=== PATIENT | male | born 1970 | race Hispanic/Latino ===

== ENCOUNTER 2018-06-12 11:21 | Inpatient (IN) | payer SELFPAY ==
[2018-06-12] MEDS ORDERED: Morphine 2 MG/ML SYRINGE ONE (11:48)
[2018-06-12] MEDS ORDERED: CEFAZOLIN/Water 2 GM/20 ML SYRINGE SLOW IVP SCH (12:15)
--- NOTE | 2018-06-12 12:28 | CON ---
DATE OF CONSULTATION: 06/12/2018 CONSULTING PHYSICIAN: Dr. Kurtis Cavanaugh HISTORY OF PRESENT ILLNESS: The patient was brought in from [place]. He was initially seen there f or a large laceration to the right lower extremity. 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 He is in a fair amount of pain. He has a little bit of numbness to that me dial side of the right foot, but he can feel some sensations. A worker that works with him is interp reting. Overall, he is in good health. He has got no history of any surgeries. His coworker states he is very strong worker and has known him for 10+ years and the individual is rarely or has no medi charanjit issues. He is able to move his foot, dorsiflex and plantarflex well. PAST MEDICAL HISTORY: Healthy. SOCIAL HISTORY: Works, has occasional ETOH beverage, smokes a pack of cigarettes or less for 40 some odd years. FAMILY HISTORY: Noncontributory. ALLERGIES: No known drug allergies. CURRENT MEDICATIONS: Occasional [id number] medications, but no daily current medications. REVIEW OF SYSTEMS: Pain to that right lower extremity and a little bit of numbness. Otherwise, rest of review of systems discussed with the patient through spanish medical interpreter is negative. PHYSICAL EXAMINATION: GENERAL: Well-nourished, well-developed male resting on gurney, in no acute distress. Spee ch is clear. Affect pleasant. Answers questions appropriately. He is alert and oriented x3 per int erpreter. HEENT: Normal exam. Face symmetric, tongue midline. EXTREMITIES: Upper extremities, equal size, shape, symmetry, normal bulk and tone. Lower extremitie s; the patient has a very significant large opened traumatic laceration to his right anterior carrillo. He did bounce the blade off of his tibia, which is noted on visual exam. Sensations; he is able to f eel light touch sensations to the entire right foot, but states the great toe, second digit down to t he foot is a little bit different feeling than the left. DP, PT pulses equal and symmetric. Sensati ons are intact as discussed above. ASSESSMENT: Traumatic saw blade injury to the right anterior carrillo. PLAN: I spoke with the patient through an spanish medical interpreter. He is healthy. He has not eaten anything si nce this morning. I explained the risks and benefits of surgery and discussed surgical option, which would be a surgical washout, antibiotics. He may need a wound VAC, secondary wound closure dependin g on the tissue loss. The patient understands the risks and benefits of surgery as we have discussed through the spanish medical interpreter and he is amenable to go forth with surgery. His tetanus shot was updated a nd again he has no chronic health problems.
[2018-06-12] MEDS ORDERED: Lidocaine 1% PF 5 ML VIAL ONE (13:54)
[2018-06-12] MEDS ORDERED: PROPOFOL 200 MG/20 ML VIAL ONE (13:54)
[2018-06-12] MEDS ORDERED: ePHEDrine/0.9% NaCl/PF SYRINGE 50 mg/10 ml ONE (13:54)
--- NOTE | 2018-06-12 14:12 | HP-2 ---
DATE OF ADMISSION: 06/12/2018 HISTORY OF PRESENT ILLNESS: Mr. Ortiz is a 47-year-old gentleman, who was a transfer from the [facility] after suffering an injury to his right leg at work this morning. The patient reports that he was working around a large mechanical saw and, while walking to go and retrieve new "bands" to change out on the machine, he accidentally brushed his leg against the saw while it was operating. This resulted in a significant injury to his right carrillo. On initial presentation to the [facility], the patient's vitals were noted to be within normal limits and his initial GCS score was 15. However, he was reported 10/10 pain in his right lower extremity with some associated numbness and/or tingling. He was therefore given 8 mg of IV morphine for pain control. In addition, the patient was given 4 mg of IV Zofran, a tetanus shot, and a 3.375 gram dose of IV Zosyn. An x-ray of the patient's right lower leg was also taken and was significant only for a very large, extensive soft tissue injury with a small osseous defect on the anterior cortex involving half the depth of the anterior apex. No full thickness fracture or foreign bodies were identified. Upon arrival to the [facility] in [place], the patient's GCS score remained at 15, and on our evaluation, he reported his pain to be a 3/10 in severity. He still endorsed some persistent associated numbness in the right lower extremity, but was otherwise feeling much improved compared to when he initially presented. PAST MEDICAL HISTORY: The patient denies any previous medical problems. PAST SURGICAL HISTORY: The patient denies any previous surgeries. SOCIAL HISTORY: The patient endorses an approximate [id number] history stating he has smoked about a pack a day since he was 10 years old. He denies any illicit drug use but endorses occasional alcohol use. FAMILY HISTORY: Patient denies any family history of diabetes mellitus, hypertension, or heart disease. CURRENT MEDICATIONS: The patient denies any active medications. ALLERGIES: Patient denies any known drug allergies. REVIEW OF SYSTEMS: A 10-point review of systems is essentially unremarkable except for what was mentioned in the history of present illness. PHYSICAL EXAMINATION: GENERAL: Patient is a 47-year-old normally developed man, who is coherent and interactive and appears stated age. The patient is alert and oriented x3 and appears to be in no acute distress. VITAL SIGNS: Blood pressure, just prior to evaluation, was measured at 127/74, pulse 54, respiratory rate 16, temperature 97.9, oxygen saturation 97% on room air. HEENT: Head is normocephalic, atraumatic with no scleral icterus present. CHEST: Chest wall is stable. No gross deformities present. HEART: Regular rate and rhythm. No murmurs or gallops noted. LUNGS: Clear to auscultation bilaterally. Symmetric chest rise with normal work of breathing. ABDOMEN: Abdomen is soft, nontender, nondistended. Normal bowel sounds noted. EXTREMITIES: Evaluation of the right lower extremity reveals an approximate 15 cm avulsion laceration of the pretibial area, approximately 8 cm below the knee. There is marked disruption of the soft tissue and musculature with superficial injury to the tibia. Patient is neurovascularly intact distal to the site of injury. Patient has full range of motion in all extremities. NEUROLOGIC: GCS 15. No focal deficits noted. PERTINENT LABORATORY FINDINGS: Includes a CBC with 11,700 white blood cells, hemoglobin and hematocrit of 16.3 and 51.4, platelet count is 237. PT 12.6, INR 0.9, PTT 24.4. CMP significant for a sodium of 139, potassium 3.7, chloride 108, bicarbonate 21, BUN 14, creatinine 1.05, glucose 138, total bilirubin 0.5, AST 20, ALT 21, alkaline phosphatase 81. IMAGING: Right tibia/fibula x-ray on presentation was significant for a very large extensive soft tissue injury involving the anterior aspect of the lower leg at the level of the proximal tibia shaft. Smooth osseous defects of the anterior cortex involving approximately half the depth of the anterior apex was noted. Tiny ossific fragments were noted to overlie the last noted soft tissue fragments. No full thickness fracture or metallic foreign bodies were apparent. IMPRESSION: 1. Status post mechanical saw injury to RLE. 2. Skin & soft tissue avulsion laceration of the pretibial area of right lower extremity with minor damage to anterior tibial cortex. 3. Acute traumatic pain. PLAN: 1. Orthopedic Surgery consulted regarding injury to the tibia. 2. The patient will be admitted to the surgical unit following surgical intervention. Will keep NPO and provide supportive care with IVFs and IV pain medications until patient is post-op. 3. We will initiate deep venous thrombosis and gastrointestinal prophylaxis when appropriate post-operatively. 4. We will continue antibiotic prophylaxis as appropriate and will monitor closely for any signs or symptoms of infection. 5. We will monitor hemoglobin and hematocrit closely with a.m. CBC to ensure patient does not develop anemia secondary to acute blood loss. 6. Will consult PT/OT PRN. Patient was seen by and plan was discussed with trauma attending, Dr. Malik Cavazos. ITA
[2018-06-12] MEDS ORDERED: Ondansetron HCl/PF 4 MG/2 ML Vial IVP PRN ×2 (14:32→18:25)
[2018-06-12] MEDS ORDERED: Dextrose 50% Abboject 50 ML SYRINGE SLOW IVP PRN (14:32)
[2018-06-12] MEDS ORDERED: Dextrose 5% in Water 1,000 ML IV PRN (14:32)
[2018-06-12 14:45] VITALS: BMI 24.3
[2018-06-12] MEDS ORDERED: Fentanyl 100 MCG/2 ML VIAL ONE ×2 (17:04→18:49)
[2018-06-12] MEDS ORDERED: CEFAZOLIN/Water 2 GM/20 ML SYRINGE ONE (17:23)
[2018-06-12] MEDS ORDERED: Promethazine HCl 25 MG/ML VIAL IM PRN (18:25)
[2018-06-12] MEDS ORDERED: Promethazine HCl 25 MG/ML VIAL SLOW IVP PRN (18:25)
[2018-06-12] MEDS: CEFAZOLIN/Water 2 GM/20 ML SYRINGE SLOW IVP SCH (22:06)
[2018-06-12] MEDS: Morphine 4 MG/ML VIAL SLOW IVP PRN (22:06)
--- NOTE | 2018-06-13 00:09 | OP ---
DATE OF PROCEDURE: 06/12/2018 PROCEDURE: Irrigation and debridement of right leg laceration with open tibia fracture. PREOPERATIVE DIAGNOSIS: Right deep leg laceration through muscle fascia and into bone. POSTOPERATIVE DIAGNOSIS: Right deep leg laceration through muscle fascia and into bone. COMPLICATIONS: None. ESTIMATED BLOOD LOSS: Minimal. SURGEON: Kurtis Cavanaugh M.D. ANESTHESIA: General plus local. INDICATIONS: Mr. Bear is a 47-year-old male who lacerated his leg at the mid shaft of the tibia with a circulating saw. He had a complex laceration with muscle and bone involvement. He has been indicated for irrigation and debridement of the wounds to prevent infection and removed nonviable tis ana. Risks have been reviewed in detail. Main risk is of infection or wound complication. DESCRIPTION OF PROCEDURE: Mr. Bear was identified in the preoperative holding area. His correc t extremity was marked. He was carried to the operating room. He was positioned supine. General an esthesia was induced. A multidisciplinary timeout was performed. The right lower extremity was prep ped and draped in sterile fashion. We began the procedure with exploration of the patient's wound. He had a 10 cm laceration over the a nterior lateral tibia. These traveled down to the bony level. We debrided, injured anterior compart ment musculature which was severely injured. We also debrided fascia and bone and sharp fashion with rongeur and a curet and knife. We thoroughly irrigated with copious lavage. At this point, we adrienne n performed a final debridement. We then very loosely closed the skin over the wound with 3-0 nylon suture. A sterile dressing was applied. The patient was taken to the recovery room in good conditio n.
[2018-06-13] MEDS: Lactated Ringer's 1,000 ML IV SCH ×2 (04:22→04:23)
[2018-06-13 04:39] LABS: #Eosinphils 0.1 thou/uL (0.0-0.7); #Lymphocytes 1.7 thou/uL (1.20-3.40); #Monocytes 1.2 thou/uL (0.11-0.59); %Basophils 0.3 % (0.0-1.0); %Lymphocytes 15.4 % (21.0-51.0); %Monocytes 10.7 % (0.0-10.0); %Neutrophils 72.6 % (42.0-75.0); Hemoglobin 14.2 g/dL (14.0-18.0); Mean Corpuscular HGB CONC 32.3 g/dL (32.0-36.0); Mean Corpuscular Hemoglobin 30.4 pg (27.0-31.0); Mean Corpuscular Volume 94.2 fL (78.0-98.0); Mean Platelet Volume 9.1 fL (7.4-10.4); Platelet Count 177 thou/uL (130-400); RBC Distribution Width 12.6 % (11.5-14.5); Red Blood Cell (RBC) Count 4.67 mill/uL (4.70-6.10); White Blood Cell (WBC) Count 11.1 thou/uL (4.8-10.8)
[2018-06-13] MEDS: CEFAZOLIN/Water 2 GM/20 ML SYRINGE SLOW IVP SCH (05:27)
[2018-06-13] MEDS: Morphine 4 MG/ML VIAL SLOW IVP PRN (05:35)
[2018-06-13] MEDS ORDERED: traMADol HCl 50 MG TAB PO PRN (05:46)
[2018-06-13] MEDS: Ibuprofen 800 MG TAB PO SCH ×3 (07:53→21:42)
[2018-06-13] MEDS: traMADol HCl 50 MG TAB PO SCH ×3 (07:54→17:42)
[2018-06-13] MEDS: Acetaminophen 500 MG TAB PO SCH ×3 (07:54→17:42)
[2018-06-13] MEDS: Famotidine 20 MG TAB PO SCH ×2 (08:41→21:44)
[2018-06-13] MEDS: Enoxaparin Sodium 40 MG/0.4 ML SYRINGE SC SCH (08:42)
[2018-06-13] MEDS: Senokot S 8.6-50 MG TAB PO SCH (21:44)
[2018-06-14] MEDS: Acetaminophen 500 MG TAB PO SCH ×3 (00:34→12:05)
[2018-06-14] MEDS: traMADol HCl 50 MG TAB PO SCH ×3 (00:35→12:05)
[2018-06-14] MEDS: Ibuprofen 800 MG TAB PO SCH ×2 (05:44→15:24)
--- NOTE | 2018-06-14 08:23 | PRG-2 ---
DATE OF SERVICE: 06/13/2018 SUBJECTIVE: The patient is a 47-year-old gentleman, who is postop day #1 status post I&D & loose wound closure of a 15 cm avulsion laceration of his right pretibial area. No acute events overnight. On exam, the patient states his pain has been well controlled and rates it 3/10 in severity. Still endorses some residual numbness in his right lower extremity. The patient has no complaints this morning. OBJECTIVE: VITAL SIGNS: Temperature 98.2 degrees Fahrenheit, pulse 80, respirations 16, O2 sat 95% on room air, and blood pressure 115/58. GENERAL: The patient is sitting up in bed and coherent and conversant, in no acute distress. HEENT: Atraumatic, normocephalic. CARDIOVASCULAR: Regular rate and rhythm, no murmurs. LUNGS: Clear to auscultation bilaterally. Symmetric chest rise and normal work of breathing. EXTREMITIES: Right lower extremity has clean, dry, dressing covering his wound. He has normal range of motion in all extremities. Neurovascularly intact distal to the site of injury. NEUROLOGIC: The patient is alert and oriented x3. No focal deficits noted. LABORATORY DATA: White blood count 11.1, hemoglobin 14.2, hematocrit 44, and platelet count 177. RADIOLOGIC DATA: There is no new radiologic data for review. ASSESSMENT: 1. Status post mechanical fall injury to right lower extremity. 2. Skin and soft tissue avulsion laceration of the pretibial area of right lower extremity, status post repair. 3. Acute traumatic pain. PLAN: Will touch base with Orthopedic Surgery, Dr. Cavanaugh, today regarding when the patient can be cleared for discharge. Will have PT come and evaluate and work with the patient today. Will continue with p.o. medications only for postop pain control and initiate a scheduled bowel regimen. Will continue to monitor for signs of infection. Will get a repeat CBC in the morning. The patient was seen by and the plan was discussed with the trauma attending, Dr. Malik Cavazos. ITA
[2018-06-14] MEDS ORDERED: Polyethylene Glycol 3350 17 GM Packet PO SCH (09:00)
[2018-06-14] MEDS: Senokot S 8.6-50 MG TAB PO SCH (09:04)
[2018-06-14] MEDS: Famotidine 20 MG TAB PO SCH (09:04)
[2018-06-14] MEDS: Enoxaparin Sodium 40 MG/0.4 ML SYRINGE SC SCH (09:05)
--- NOTE | 2018-06-14 12:43 | DIS-2 ---
DATE OF ADMISSION: 06/12/2018 DATE OF DISCHARGE: 06/14/2018 ADMITTING ATTENDING: Dr. Malik Cavazos. DISCHARGE ATTENDING: Dr. Malik Cavazos. CONSULTATIONS: Dr. Kurtis Cavanaugh, Orthopedic Surgery. PROCEDURES: 1. Tibia-fibula x-ray done at an outside Emergency Department on 06/12/2018, significant for a very large and extensive soft tissue injury involving the anterior aspect of the lower leg at the level of the proximal tibial shaft. Smooth osseous defect of the anterior cortex involves approximately half the depth of the anterior apex. Tiny ossific fragments overlying the lacerated soft tissue fragments. No full thickness fracture or metallic foreign bodies are apparent and of note this is the right lower leg x-ray. 2. I&D and loose closure of tibial laceration in RLE. PRIMARY DIAGNOSES: Significant skin and soft tissue avulsion and laceration of the right pretibial area with minor damage to anterior tibial cortex. SECONDARY DIAGNOSIS: None. DISCHARGE MEDICATIONS: 1. Tramadol 50 mg q.6 hours p.r.n. for pain, #40. 2. Tylenol 1000 mg p.o. q.6 hours for pain. 3. Ibuprofen 800 mg p.o. q.8 hours for pain. 4. Duricef 500 mg p.o. b.i.d. for 7 days. DISCONTINUED MEDICATIONS: None. HOSPITAL COURSE: The patient is a 47-year-old gentleman with no significant past medical history who was transferred from the [facility] after suffering an injury to his right lower leg at work the morning of admission. The patient reports walking into a large mechanical fall resulting in a large laceration in his right lower leg. On presentation to the [facility], the patient's initial GCS score was 15 and he reported his pain being 10/10 in his right lower extremity with some associated numbness and/or tingling. He was given 8 mg of IV morphine for pain control as well as 4 mg of IV Zofran, a tetanus shot and 3.375 gram dose of IV Zosyn. An x -ray of the patient's right lower extremity was also obtained, which showed a very large and extensive soft tissue defect. No foreign bodies or full thickness fractures were identified. He was then transferred to the [facility] in [place] and upon arrival, his GCS score remained at 15 and his pain was reported to be at 3/10 in severity. The trauma team was consulted to come and evaluate the patient as well as Orthopedic Surgery. The trauma services agreed to admit the patient overnight for observation and pain control. However, before being taken to the floor, the patient was kept n.p.o. as he had not eaten yet that day and was taken to the operating room for an I&D and loose closure of the wound over his right tibia. The patient tolerated the procedure well and was sent to the floor for monitoring overnight. The following day, he was able to ambulate well with physical therapy with the aid of crutches. His pain was also well controlled on p.o. pain medications. He was kept one additional night for observation and by the date of discharge, the patient had a bowel movement, was tolerating a PO diet well, and his pain remained well controlled on p.o. pain medications. He was therefore cleared for discharge home and instructed to follow up with Orthopedic Surgery within 1 week of discharge. DISPOSITION: Stable. DISCHARGE INSTRUCTIONS: 1. Location: Home. 2. Diet: Regular diet, no restrictions. 3. Activity: As tolerated. 4. Followup: The patient was instructed to follow up with his primary care provider at [facility] within 1 week of discharge as well as Dr. Kurtis Cavanaugh within 1 week of discharge. ITA
[2018-06-14 15:49] VITALS: BP 133/66; TEMP 97.9
== END 2018-06-14 17:24 | disposition home or self-care (01) | DRG 494 ==
LOC: ERS 11:21 → SURG A 14:15
PROVIDERS: ADMIT Surgery; ATTEND Surgery
PROC: 0QBG0ZZ Excision of Right Tibia, Open Approach (ICD-10-PCS; principal; 2018-06-12)
DX: S82.201B Unspecified fracture of shaft of right tibia, initial encounter for open fracture type I or II (principal); W31.2XXA Contact with powered woodworking and forming machines, initial encounter; Y92.69 Other specified industrial and construction area as the place of occurrence of the external cause; F17.210 Nicotine dependence, cigarettes, uncomplicated
CPT/HCPCS: 36415; 85025; 90471; 90686; 90732; 96361; 96374; G0008; G0009; G0390; G8978-GP-CJ; G8979-GP-CJ; G8980-GP-CJ; J1650; J2001; J2270; J2704; J3010